=== PATIENT | female | born 1940 | race Caucasian/White ===

== ENCOUNTER 2018-10-03 21:55 | Inpatient (IN) ==
[2018-10-03] MEDS ORDERED: IOPAMIDOL 100 ML BOTTLE IV ONE (21:56)
[2018-10-03] MEDS ORDERED: 0.9 % SODIUM CHLORIDE 1,000 ML IV SCH (22:30)
--- NOTE | 2018-10-03 22:43 | Emergency Department Note ---
Neuro HPI - General Chief Complaint: Neuro Symptoms/Deficit Stated Complaint: Possible Stroke Time Seen by Provider: 10/03/18 22:20 Source: patient Mode of arrival: ambulatory Limitations: no limitations - History of Present Illness HPI Narrative: 77-year-old female approximately 4 hours prior to arrival at about 1800 went to walk outside onto her patio and her knee suddenly gave way. She fell onto the patio and she had trouble getting up because her right side was weak-both right arm and right leg. She did manage to gather enough strength to pull herself inside but she continued to have trouble because her legs keep giving out. She did injure her knees bilaterally. She was noted to have a right-sided facial droop. Falls were unwitnessed Denies any past medical history or risk factors for stroke - Related Data Home Medications: Home Medications Medication Instructions Recorded Confirmed Levothyroxine [Synthroid] 75 mcg PO DAILY 04/16/17 04/16/17 Previous Rx's Medication Instructions Recorded Ondansetron HCl [Zofran ODT] 4 mg SL Q4-6HP PRN #14 tablet 04/16/17 Allergies/Adverse Reactions: Allergies Allergy/AdvReac Type Severity Reaction Status Date / Time No Known Drug Allergies Allergy Verified 04/16/17 07:56 Review of Systems All systems ED: reviewed and negative except as stated. Past Medical History - Past Medical History Attestation: Yes: The following information was validated with the patient. Medical history: Reports: arthritis, thyroid disease Surgical history ED: Reports: hysterectomy - Social History smoking status: Former smoker Alcohol use: Reports: Rarely Drug use: Reports: none Physical Exam Normocephalic atraumatic. Conjunctive are clear sclerae nonicteric. No nasal discharge or congestion. Oropharynx pink and moist. Neck is supple without lymphadenopathy thyromegaly or carotid bruit. Heart is regular rate and rhythm no murmur appreciated. Lungs are clear to auscultation bilaterally without wheezes rales rhonchi or respiratory distress. Abdomen is soft nontender nondistended. No peritoneal signs guarding or rigidity. No pedal edema. +2 radial pulse. Alert oriented able to give me reasonable history although she does have some trouble with word finding is not clear if this is baseline or if this is new. She is overall cooperative and is able to move around with some assistance but she does note significant right arm weakness of the shoulder elbow and hand. [employer] is much decreased when compared to the left. Additionally right hip and knee are much decreased compared to the left in terms of strength. Sensation does appear to be intact bilaterally. Cranial nerves II through XII grossly intact I do not see a facial droop here. No dysarthria ataxia or tremor. Osteoarthritic changes to her hands. Bilateral knees with abrasions mild but no lacerations ecchymoses. Mild effusion on the right although she is complaining of more pain on the left. Knees seem stable on testing. Limitations: no limitations Course Vital Signs Temperature 98.4 F 10/03/18 21:55 Pulse Rate 94 H 10/03/18 21:55 Respiratory Rate 18 10/03/18 21:55 Blood Pressure 182/105 10/03/18 21:55 Pulse Oximetry (%) 95 10/03/18 21:55 Temperature 98.4 F 10/03/18 21:55 Pulse Rate 93 H 10/04/18 01:01 Respiratory Rate 21 10/04/18 01:01 Blood Pressure 187/91 10/04/18 01:01 Pulse Oximetry (%) 94 10/04/18 01:01 Neuro Symptoms/Deficit - Lab Data Lab results reviewed: Yes I reviewed the patient's lab results. Result diagrams: 10/03/18 22:22 10/03/18 22:22 Lab Results 10/03/18 10/03/18 10/03/18 Range/Units 22:22 22:22 22:22 WBC 7.3 (4.5-11.0) K/mcL RBC 5.06 (4.00-5.20) M/mcL Hgb 12.8 (12.0-15.0) g/dL Hct 38.9 (36.0-48.0) % POC Hct 39.0 (36.0-48.0) % MCV 76.8 L (80.0-100.0) fL MCH 25.2 L (26.0-34.0) pg MCHC 32.8 (31.0-36.0) g/dL RDW 13.5 (11.5-14.5) % Plt Count 226 (140-440) K/mcL MPV 8.9 (7.4-10.4) fL Gran % 82.0 H (38.0-78.0) % Lymph % (Auto) 10.6 L (15.5-49.0) % [place] % (Auto) 5.9 (1.0-12.0) % Eos % (Auto) 1.3 (0.0-7.0) % Baso % (Auto) 0.2 (0.0-2.0) % Gran # 6.0 (1.8-8.0) K/mcL Lymph # (Auto) 0.8 L (1.5-4.8) K/mcL [place] # (Auto) 0.4 (0.1-0.9) K/mcL Eos # (Auto) 0.1 (0.0-0.7) K/mcL Baso # (Auto) 0 (0.0-0.3) K/mcL POC PT 12.2 (11.9-14.5) sec POC INR 1.0 (0.9-1.2) APTT 29 (20-37) sec POC Sodium 141 (133-145) mmol/L Sodium 139 (133-145) mmol/L POC Potassium 3.9 (3.3-5.1) mmol/L Potassium 4.1 (3.3-5.1) mmol/L POC Chloride 107 (96-108) mmol/L Chloride 104 (96-108) mmol/L Carbon Dioxide 20 L (22-30) mmol/L POC Total CO2 22 (22-30) mmol/L Anion Gap 15.0 (8-16) POC BUN 19 (8-23) mg/dl BUN 18 (8-23) mg/dl Creatinine 0.7 (0.6-1.1) mg/dl POC Creatinine 0.7 (0.6-1.1) mg/dl GFR Calculation 82 Glucose 106 H (70-105) mg/dL POC Glucose 109 H (70-105) mg/dL Calcium 10.4 (8.6-10.4) mg/dl POC WB Ioniz Calcium 1.26 (1.16-1.32) mmol/L Total Bilirubin 0.4 (0.0-1.0) mg/dL AST 24 (0-37) U/l ALT 21 (0-40) U/l Alkaline Phosphatase 98 (39-117) U/L Troponin T (0-0.03) ng/ml Total Protein 7.3 (5.9-8.4) gm/dL Albumin 4.4 (3.2-5.2) gm/dL Globulin 2.9 (2.2-3.7) gm/dL Albumin/Globulin Ratio 1.5 (1.0-2.3) Urine Color Urine Appearance Urine pH (5.0-9.0) Ur Specific [place] (1.000-1.035) Urine Protein (NEG) mg/dL Urine Glucose (UA) (NEG) mg/dL Urine Ketones (NEG) mg/dL Urine Occult Blood (<0.03) mg/dL Urine Nitrate (NEG) Urine Bilirubin (NEG) mg/dL Urine Urobilinogen (NEG) mg/dL Ur Leukocyte Esterase (NEG) /uL Urine RBC (0-1) /hpf Urine WBC (0-4) /hpf Ur Squamous Epith Cells (0-4) /hpf Ur Transition Epith Cell (0-2) /hpf Urine Bacteria (0) /hpf Urine Mucus (0) /hpf Ur Culture Indicated? 10/03/18 10/03/18 Range/Units 22:22 23:18 WBC (4.5-11.0) K/mcL RBC (4.00-5.20) M/mcL Hgb (12.0-15.0) g/dL Hct (36.0-48.0) % POC Hct (36.0-48.0) % MCV (80.0-100.0) fL MCH (26.0-34.0) pg MCHC (31.0-36.0) g/dL RDW (11.5-14.5) % Plt Count (140-440) K/mcL MPV (7.4-10.4) fL Gran % (38.0-78.0) % Lymph % (Auto) (15.5-49.0) % [place] % (Auto) (1.0-12.0) % Eos % (Auto) (0.0-7.0) % Baso % (Auto) (0.0-2.0) % Gran # (1.8-8.0) K/mcL Lymph # (Auto) (1.5-4.8) K/mcL [place] # (Auto) (0.1-0.9) K/mcL Eos # (Auto) (0.0-0.7) K/mcL Baso # (Auto) (0.0-0.3) K/mcL POC PT (11.9-14.5) sec POC INR (0.9-1.2) APTT (20-37) sec POC Sodium (133-145) mmol/L Sodium (133-145) mmol/L POC Potassium (3.3-5.1) mmol/L Potassium (3.3-5.1) mmol/L POC Chloride (96-108) mmol/L Chloride (96-108) mmol/L Carbon Dioxide (22-30) mmol/L POC Total CO2 (22-30) mmol/L Anion Gap (8-16) POC BUN (8-23) mg/dl BUN (8-23) mg/dl Creatinine (0.6-1.1) mg/dl POC Creatinine (0.6-1.1) mg/dl GFR Calculation Glucose (70-105) mg/dL POC Glucose (70-105) mg/dL Calcium (8.6-10.4) mg/dl POC WB Ioniz Calcium (1.16-1.32) mmol/L Total Bilirubin (0.0-1.0) mg/dL AST (0-37) U/l ALT (0-40) U/l Alkaline Phosphatase (39-117) U/L Troponin T < 0.01 (0-0.03) ng/ml Total Protein (5.9-8.4) gm/dL Albumin (3.2-5.2) gm/dL Globulin (2.2-3.7) gm/dL Albumin/Globulin Ratio (1.0-2.3) Urine Color Yellow Urine Appearance Clear Urine pH 7.0 (5.0-9.0) Ur Specific [place] 1.015 (1.000-1.035) Urine Protein Neg (NEG) mg/dL Urine Glucose (UA) Negative (NEG) mg/dL Urine Ketones 5/tr A (NEG) mg/dL Urine Occult Blood Neg (<0.03) mg/dL Urine Nitrate Neg (NEG) Urine Bilirubin Neg (NEG) mg/dL Urine Urobilinogen Neg (NEG) mg/dL Ur Leukocyte Esterase 25 A (NEG) /uL Urine RBC 1 (0-1) /hpf Urine WBC 5 H (0-4) /hpf Ur Squamous Epith Cells 1 (0-4) /hpf Ur Transition Epith Cell < 1 (0-2) /hpf Urine Bacteria 0 (0) /hpf Urine Mucus Few (0) /hpf Ur Culture Indicated? Yes - Radiology Data Radiology results reviewed: Yes I reviewed the patient's radiology results. CT scan of the head without contrast shows no acute findings but old small vessel disease and chronic scalp findings Knee x-rays do not show acute abnormality either. CT angiogram of the head and neck shows no acute findings; no cause for stroke identified - EKG Data EKG attestation: Yes I reviewed and interpreted this EKG. EKG results narrative: EKG shows rate of 95 normal sinus rhythm without evidence of ischemia Disposition Pt seen by YARDER/PA only: No Clinical Impression: CVA (cerebral vascular accident) Qualifiers: CVA mechanism: unspecified Qualified Code(s): I63.9 - Cerebral infarction, unspecified Fall Qualifiers: Encounter type: initial encounter Qualified Code(s): W19.XXXA - Unspecified fall, initial encounter Knee contusion Qualifiers: Encounter type: initial encounter Laterality: unspecified laterality Qualified Code(s): S80.00XA - Contusion of unspecified knee, initial encounter Summary: Workup ordered for likely CVA with residual right-sided weakness of arm and leg. Now out of window for TPA CT scan does not show any sign of acute stroke. Tele-stroke was contacted then and I discussed the case with Dr. Rivas who recommended CT angiogram of the head and neck-if this was negative she felt the patient could be monitored here and worked up. If a embolism was identified patient could be sent up to [place] then CT angiogram did not show evidence of an acute embolism. So I discussed the case with Dr. Nesbitt, hospitalist, who agreed to accept the patient for further care and evaluation here Disposition: Xfer As Inpt ([facility]) Condition: Fair Referrals: Marjan Marrero MD [Primary Care Provider] -
[2018-10-03 23:33] LABS: ALT/SGPT 21 U/l (0-40); Albumin 4.4 gm/dL (3.2-5.2); Albumin/Globulin Ratio 1.5 (1.0-2.3); Alkaline Phosphatase 98 U/L (39-117); Blood Urea Nitrogen 18 mg/dl (8-23)
[2018-10-03 23:36] LABS: Basophils # (Auto) 0 K/mcL (0.0-0.3); Basophils % (Auto) 0.2 % (0.0-2.0); Eosinophils # (Auto) 0.1 K/mcL (0.0-0.7); Eosinophils % (Auto) 1.3 % (0.0-7.0); Lymphocytes # (Auto) 0.8 K/mcL (1.5-4.8); Lymphocytes % (Auto) 10.6 % (15.5-49.0); Mean Cell Volume 76.8 fL (80.0-100.0); Mean Corpuscular HGB Conc 32.8 g/dL (31.0-36.0); Mean Corpuscular Hemoglobin 25.2 pg (26.0-34.0); Monocytes # (Auto) 0.4 K/mcL (0.1-0.9); Monocytes % (Auto) 5.9 % (1.0-12.0); Platelet Count 226 K/mcL (140-440); RBC 5.06 M/mcL (4.00-5.20); Red Cell Distribution Width 13.5 % (11.5-14.5)
[2018-10-04 00:17] LABS: Appearance,Urine CLEAR; Bacteria,Urine 0 /hpf (0); Bilirubin,Urine NEG (NEG); Color,Urine YELLOW; Glucose,Urine (UA) NEGATIVE (NEG); Leukocyte Esterase,Urine 25 /uL (NEG); Mucus,Urine FEW /hpf (0); Protein,Urine NEG (NEG); Specific Gravity,Urine 1.015 (1.000-1.035); Urine Blood NEG mg/dL (<0.03); Urine RBC 1 /hpf (0-1); Urine Squamous Epithelial Cell 1 /hpf (0-4); Urine Transitional Epi Cells < 1 /hpf (0-2); Urine WBC 5 /hpf (0-4); Urobilinogen,Urine NEG (NEG)
[2018-10-04] MEDS ORDERED: ASPIRIN 81 MG TAB.CHEW CHEWED ONE (01:36)
[2018-10-04] MEDS: 0.9 % SODIUM CHLORIDE 1,000 ML IV SCH (03:48)
--- NOTE | 2018-10-04 05:54 | Cat Scan Report ---
CLINICAL INFORMATION: Code stroke COMPARISON: None. TECHNIQUE: Axial noncontrast-enhanced images through the brain. FINDINGS: No acute intracranial hemorrhage. No subdural or subarachnoid hemorrhage. No intra-axial hematoma. There is extensive white matter abnormality with low density in a predominantly periventricular distribution. There are low density abnormalities in the globus pallidus bilaterally. These are consistent with nonacute infarctions. Periventricular white matter abnormalities consistent with small vessel ischemic change. No acute attenuation abnormality or localized mass effect. No midline shift. Brainstem and cerebellum are negative. Basilar cisterns are normal. No hyperdense middle cerebral artery sign. No calvarial lesions. No fracture. No lytic lesion. There are 2 small calcifications in the right parietal extracranial soft tissues. There is also a small soft tissue nodule. Findings are most consistent with epidermal inclusion cysts. Examination was initially interpreted by [facility] IMPRESSION: 1. No acute intracranial hemorrhage. 2. White matter abnormality consistent with small vessel ischemic change. 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 No acute abnormality The exam was performed using radiation dose optimization techniques including, but not limited to, automated exposure control, adjustment of the mA and/or kV according to patient size and use of iterative reconstruction technique. Interpreted and Authenticated by: Celestino Roman 10/04/18
--- NOTE | 2018-10-04 05:55 | XRay Report ---
CLINICAL INFORMATION: Fall. Knee pain. TECHNIQUE: Bilateral AP and crosstable lateral views COMPARISON: None. FINDINGS: Knees are negative. No acute fracture. No plain film evidence for suprapatellar intra-articular effusion. No acute abnormality. IMPRESSION: Negative bilateral knees Interpreted and Authenticated by: Celestino Roman 10/04/18
--- NOTE | 2018-10-04 06:19 | Cat Scan Report ---
CLINICAL INFORMATION: Code stroke TECHNIQUE: Axial images through the chest and neck. 80 mL contrast material injected. Scans performed during arterial phase. Sagittal and coronal MIP and MPR reformatted images. COMPARISON: Noncontrast enhanced brain CT scan dated 10/03/2018 FINDINGS: Mild calcification in the aortic arch. No thoracic aortic aneurysm. No dissection. Origins of the left subclavian artery, left common carotid artery, innominate artery, right subclavian artery, right common carotid artery are negative. There is mild calcification in the distal left common carotid artery at the carotid bifurcation. There is no luminal compromise. No stenosis. No evidence for ulceration. Cervical internal carotid arteries are negative bilaterally. No stenosis. No ulceration. No luminal irregularity. No soft plaque. Vertebral arteries are negative. No stenosis or occlusion. There is no cervical soft tissue mass. No prevertebral soft tissue swelling. Lung apices are negative. No soft tissue mass. No focal infiltrate There is a linear density within the upper right breast. Etiology is not certain. Patient does not have any prior mammograms to review Examination was initially reviewed by [facility] IMPRESSION: 1. Minimal calcification in the distal left common carotid artery 2. Otherwise negative examination. No stenosis. No ulceration. Interpreted and Authenticated by: Celestino Roman 10/04/18
--- NOTE | 2018-10-04 06:27 | Cat Scan Report ---
CLINICAL INFORMATION: Code stroke TECHNIQUE: 80 mL intravenous contrast material injected. Scans performed during arterial phase. Routine axial images obtained. Sagittal, axial, coronal MIP reformatted images. COMPARISON: Noncontrast enhanced brain CT scan dated 10/03/2018 FINDINGS: Dense atherosclerotic calcification in the distal cavernous and supraclinoid segments of the internal carotid arteries bilaterally. There is 50% stenosis bilaterally. No complete occlusion. M1 segments of the middle cerebral arteries and A1 segments of the anterior cerebral arteries are negative. No stenosis or occlusion. No intraluminal thrombus. Intracranial vertebral arteries are negative. No stenosis. Basilar artery is negative. Posterior cerebral arteries appear negative. No intracranial aneurysm. No arteriovenous malformation. No detectable intracranial branch occlusion. There is a possible focal intracranial stenosis in an M2 right middle cerebral artery branch. This is identified on MIP coronal reformatted images, best seen on series 202, image 85/204. There is no complete occlusion. No other intracranial stenosis or branch occlusion. Dural sinuses are normally opacified. Examination was initially interpreted by [facility] IMPRESSION: 1. Dense atherosclerotic calcification in the distal cavernous and proximal supraclinoid segments of the internal carotid arteries bilaterally. Approximately 50% stenosis bilaterally. 2. Possible intracranial stenosis involving an M2 branch of the right middle cerebral artery. No intracranial branch occlusion. Interpreted and Authenticated by: Celestino Roman 10/04/18
[2018-10-04] MEDS ORDERED: ACETAMINOPHEN 325 MG TABLET PO PRN (07:46)
[2018-10-04] MEDS ORDERED: ONDANSETRON 4 MG/2 ML VIAL IV PRN (07:46)
--- NOTE | 2018-10-04 07:56 | Internal Med History&Physical ---
Medical - H&P: HPI Patient information: Note initiated : 10/04/18 at 7:54 am Service Date, if different from initiated Date: [] Patient: Kelly Gates a 77 y/o F admitted on 10/04/18 for Possible Stroke. Chief Complaint: [] History of present illness: Ms. Gates is a 77 year old F Who presented to the ED after a fall and right-sided weakness last night. Yesterday evening she went out to take her dog outside the bathroom when she stepping through the door she suddenly fell legs gave out and try to get up she knows her right side was significantly weak eventually notes her right arm was weak as well she called 9 1 was brought to the ER. She states she was able to communicate appropriately with the with EMS. She denies any facial droop or slurring or difficulty with speech. She did have some tingling and numbness in her right side as well. She still has the symptoms although they are somewhat improved. CTA head neck was done which did not reveal the stroke. Telemetry stroke was contacted by ER physician spoke with the stroke neurologist patient was out of the timeframe for TPA and was recommended to treat medically. No strokes in the past. Patient is not on aspirin. EKG in the ER with normal sinus rhythm. Only chronic findings on the CTA head neck showed carotid artery stenosis of about 50% in possibly some stenosis of the right middle cerebral artery. Review of Systems: Pertinent positives as above. Denies headache/fever/chills/nausea/vomiting/ chest or abdominal pain/cough/dyspnea/diarrhea. Remaining 10 point review of systems reviewed negative Medical - H&P: PMH Medical history: Medical history: Hypothyroidism Past surgical history: Ovarian cyst removal Family history: Mother had a mini stroke at age 90 Father is healthy Social history: Patient quit smoking 1985 drinks alcohol rarely lives by herself Medical - H&P: Meds Home Medications Medication Instructions Recorded Confirmed Type Levothyroxine [Synthroid] 75 mcg PO DAILY 04/16/17 04/16/17 History Ondansetron HCl [Zofran ODT] 4 mg SL Q4-6HP PRN #14 tablet 04/16/17 Rx Allergies Allergy/AdvReac Type Severity Reaction Status Date / Time No Known Drug Allergies Allergy Verified 04/16/17 07:56 Medical - H&P: Exam - Constitutional Vitals: Temp Pulse Resp BP Pulse Ox 98.1 F 90 18 174/92 96 10/04/18 04:05 10/04/18 01:36 10/04/18 04:05 10/04/18 04:05 10/04/18 04:05 Exam: General: Alert, Awake, No acute Distress Eyes/N/T: EOMI, PEERL, DMM Head/Neck: neck supple, normocephalic atraumatic CV: RRR, No murmurs, normal s1/s2 Pulm: Clear b/l, no wheezing/rhonchi/rales Abd: soft, nontender, +BS x4 Ext: no clubbing/cyanosis/edema Neuro: Alert, CN 2-12 grossly intact, facial symmetry, hemiparetic on the right side Arm>leg, pronator drift on the right, mildly decreased sensation on the right side. Speech clear, comprehension intact Skin: warm/dry Medical - H&P: Reslt - Labs CBC & Chem 7: 10/03/18 22:22 10/03/18 22:22 Labs: Short CBC 10/03/18 Range/Units 22:22 WBC 7.3 (4.5-11.0) K/mcL Hgb 12.8 (12.0-15.0) g/dL Hct 38.9 (36.0-48.0) % Plt Count 226 (140-440) K/mcL BMP 10/03/18 22:22 Sodium 139 Potassium 4.1 Chloride 104 Carbon Dioxide 20 L BUN 18 Creatinine 0.7 Glucose 106 H Calcium 10.4 Cardiac Enzymes 10/03/18 Range/Units 22:22 Troponin T < 0.01 (0-0.03) ng/ml Liver Function 10/03/18 Range/Units 22:22 Total Bilirubin 0.4 (0.0-1.0) mg/dL AST 24 (0-37) U/l ALT 21 (0-40) U/l Alkaline Phosphatase 98 (39-117) U/L Albumin 4.4 (3.2-5.2) gm/dL Urine 10/03/18 Range/Units 23:18 Urine Color Yellow Urine Appearance Clear Urine pH 7.0 (5.0-9.0) Ur Specific [place] 1.015 (1.000-1.035) Urine Protein Neg (NEG) mg/dL Urine Glucose (UA) Negative (NEG) mg/dL - Impressions EKG with normal sinus rhythm CT of the head neck shows about 50% stenosis of the carotid arteries bilaterally and potentially some stenosis of the M2 branch of the right middle cerebral artery. No acute stroke noted Medical - H&P: A/P - Narrative A/P Narrative: A: *Stroke-like symptoms with right hemiparesis and mild paresthesias: -CTA head/neck with approximately 50% carotid aa stenosis, possible stenosis of m2 branch of Right MCA -ABCD= *Microcytosis *Hypothyroidism * * P: -IV fluid hydration -Aspirin/plavix initially -Statin -Pending MRI and echo -Allow permissive hypertension first 24 hours -lipid panel -pt/ot/st - -ppx:lovenox Medical - H&P: Qual - Stroke Onset of Symptoms Date: 10/04/18 Onset of Symptoms Time: 18:30 Symptom Onset Unknown: No - VTE Deep Vein Thrombosis/Pulmonary Embolism Present on Admission: No
[2018-10-04] MEDS ORDERED: ATORVASTATIN 20 MG TABLET PO ONE (08:00)
[2018-10-04 09:24] LABS: Ferritin 90.2 ng/ml (30-400)
[2018-10-04 09:25] LABS: HDL Cholesterol 57 mg/dl (>40); Iron 74 mcg/dl (37-145); LDL Cholesterol,Calculated 175 mg/dl (SEE CHART); Transferrin % Saturation 24 % (15-50); Unsaturated Iron Binding 228 mcg/dL (112-346)
[2018-10-04] MEDS: CLOPIDOGREL 75 MG TABLET PO SCH (10:00)
[2018-10-04] MEDS: ENOXAPARIN 40 MG/0.4 ML SYRINGE SQ SCH (10:00)
[2018-10-04] MEDS: ASPIRIN 81 MG TAB.CHEW PO SCH (10:00)
[2018-10-04] MEDS: cefTRIAXone 1 GM VIAL IV SCH (10:00)
[2018-10-04] MEDS: 0.9 % SODIUM CHLORIDE 10 ML SYRINGE IV SCH ×2 (15:56→22:28)
[2018-10-04] MEDS ORDERED: hydrOXYzine 25 MG TABLET PO ONE (20:21)
[2018-10-04] MEDS: ATORVASTATIN 20 MG TABLET PO SCH (20:49)
[2018-10-05] MEDS: 0.9 % SODIUM CHLORIDE 1,000 ML IV SCH (00:20)
[2018-10-05] MEDS: 0.9 % SODIUM CHLORIDE 10 ML SYRINGE IV SCH ×3 (05:47→22:17)
[2018-10-05 05:55] LABS: ALT/SGPT 17 U/l (0-40); Albumin 3.8 gm/dL (3.2-5.2); Albumin/Globulin Ratio 1.4 (1.0-2.3); Alkaline Phosphatase 92 U/L (39-117); Bilirubin,Direct < 0.2 mg/dL (0.0-0.3); Blood Urea Nitrogen 9 mg/dl (8-23); Gamma Glutamyl Transpeptidase 28 U/L (5-36); Uric Acid 4.3 mg/dL (2.5-8.0)
--- NOTE | 2018-10-05 07:34 | Internal Med Progress Note ---
Medical - PN: Subj Patient information: Note initiated : 10/05/18 at 7:27 am Service Date, if different from initiated Date: [] Patient: Kelly Gates 77 y/o F admitted on 10/04/18 for Possible Stroke. Chief Complaint: [] Interval history: Ms. Gates is a 77 year old F Who presented to the ED after a fall and right-sided weakness last night. Yesterday evening she went out to take her dog outside the bathroom when she stepping through the door she suddenly fell legs gave out and try to get up she knows her right side was significantly weak eventually notes her right arm was weak as well she called 9 1 was brought to the ER. She states she was able to communicate appropriately with the with EMS. She denies any facial droop or slurring or difficulty with speech. She did have some tingling and numbness in her right side as well. She still has the symptoms although they are somewhat improved. CTA head neck was done which did not reveal the stroke. Telemetry stroke was contacted by ER physician spoke with the stroke neurologist patient was out of the timeframe for TPA and was recommended to treat medically. No strokes in the past. Patient is not on aspirin. EKG in the ER with normal sinus rhythm. Only chronic findings on the CTA head neck showed carotid artery stenosis of about 50% in possibly some stenosis of the right middle cerebral artery. 10/05 No overnight events. Doing well, weakness is improving. Review of Systems: denies headache/fever/chills/nausea/vomiting/chest or abdominal pain/cough/ dyspnea/diarrhea. Otherwise see above. - Constitutional Vitals: Vital Signs Temp Pulse Resp BP Pulse Ox 98.1 F 58 L 14 147/81 96 10/05/18 03:32 10/05/18 03:32 10/05/18 03:32 10/05/18 03:32 10/05/18 03:32 Period Temp Pulse Resp BP Sys/Bean Pulse Ox Last 24 Hr 97.4 F-98.8 F 58-71 14-20 147-159/81-96 96-99 Intake and Output 10/04/18 10/05/18 10/05/18 21:59 05:59 13:59 Intake Total 1480 / 1480 300 / 300 Output Total 1251 / 1251 401 / 401 Balance 229 / 229 -101 / -101 Weight 80.422 kg Intake & Output: Intake & Output 10/04/18 10/05/18 10/05/18 21:59 05:59 13:59 Intake Total 1480 / 1480 300 / 300 Output Total 1251 / 1251 401 / 401 Balance 229 / 229 -101 / -101 Weight 80.422 kg Intake: IV 1000 / 1000 Sodium Chloride 0.9% 1,000 ml @ 1000 / 1000 75 drops/hr IV .Q24H [facility] Rx#: [id number] Oral 480 / 480 300 / 300 Output: Void Amount 1250 / 1250 400 / 400 # of times incontinent of urine Other: Meal Dinner Percent of Meal Consumed 25% Feeding Ability Assist with Tray Set Up Urine Appearance Clear Urine Color Pale # Voids 1 1 Exam: General: Alert, Awake, No acute Distress Eyes/N/T: EOMI, Head/Neck: neck supple CV: RRR, No murmurs, normal s1/s2 Pulm: Clear b/l, no wheezing/rhonchi/rales Abd: soft, nontender, +BS x4 Ext: no clubbing/cyanosis/edema Neuro: Alert, CN 2-12 grossly intact, facial symmetry, hemiparetic on the right side Arm>leg but much improved. Speech clear, comprehension intact Skin: warm/dry Medical - PN: Obj Da - Labs CBC & Chem 7: 10/03/18 22:22 10/05/18 03:33 Labs: Abnormal Lab Results 10/05/18 10/04/18 10/03/18 03:33 08:07 23:18 MCV MCH Gran % Lymph % (Auto) Lymph # (Auto) Carbon Dioxide 20 L Glucose POC Glucose Cholesterol 253 H LDL Cholesterol, Calc 175 H Non-HDL Cholesterol 196 H Urine Ketones 5/tr A Ur Leukocyte Esterase 25 A Urine WBC 5 H 10/03/18 10/03/18 22:22 22:22 MCV 76.8 L MCH 25.2 L Gran % 82.0 H Lymph % (Auto) 10.6 L Lymph # (Auto) 0.8 L Carbon Dioxide 20 L Glucose 106 H POC Glucose 109 H Cholesterol LDL Cholesterol, Calc Non-HDL Cholesterol Urine Ketones Ur Leukocyte Esterase Urine WBC Meds: Medications Acetaminophen (Tylenol) 650 mg PO Q6HP PRN PRN Reason: PAIN/FEVER > 101 Aspirin (Aspirin) 81 mg PO DAILY [facility] Last Admin: 10/04/18 10:00 Dose: 81 mg Atorvastatin Calcium (Lipitor) 60 mg PO HS [facility] Last Admin: 10/04/18 20:49 Dose: 60 mg Ceftriaxone Sodium (Rocephin) 1 gm IV Q24H [facility] Last Admin: 10/04/18 10:00 Dose: 1 gm Clopidogrel Bisulfate (Plavix) 75 mg PO DAILY [facility] Last Admin: 10/04/18 10:00 Dose: 75 mg Enoxaparin Sodium (Lovenox) 40 mg SQ DAILY [facility] Last Admin: 10/04/18 10:00 Dose: 40 mg Sodium Chloride (Sodium Chloride 0.9%) 1,000 mls @ 75 drops/hr IV .Q24H [facility] Stop: 10/06/18 01:38 Last Admin: 10/05/18 00:20 Dose: 75 drops/hr Levothyroxine Sodium (Synthroid) 75 mcg PO QAMAC [facility] Ondansetron HCl (Zofran) 4 mg IV Q4HP PRN PRN Reason: Nausea And Vomiting Sodium Chloride (Saline Flush) 10 ml IV Q8 [facility] Last Admin: 10/05/18 05:47 Dose: Not Given Medical - PN: A/P - Time Spent With Patient Total time spent is greater than 50% in coordination of care (as documented) at patient's floor/unit and/or counseling patient: - Narrative A/P Narrative: A: *Stroke-like symptoms with right hemiparesis and mild paresthesias: symptoms improving -CTA head/neck with approximately 50% carotid aa stenosis, possible stenosis of m2 branch of Right MCA -ABCD=6 *Oropharyngeal dysphagia, mild: *Microcytosis *Hypothyroidism *?UTI: *HLD: P: -IV fluid hydration -Aspirin/plavix initially, given ?intracranial stenosis and carotid stenosis -Statin -Pending MRI and echo -Allow permissive hypertension first 24 hours -rocephin pending UC -pt/ot/st -Diet per ST -f/u with Dr. Reynaldo colbertpt -ppx:lovenox Medical - PN: Qual - Stroke Onset of Symptoms Date: 10/04/18 Onset of Symptoms Time: 18:30 Symptom Onset Unknown: No - VTE Deep Vein Thrombosis/Pulmonary Embolism Present on Admission: No
[2018-10-05] MEDS: ASPIRIN 81 MG TAB.CHEW PO SCH (08:02)
[2018-10-05] MEDS: LEVOTHYROXINE 75 MCG TABLET PO SCH (08:02)
[2018-10-05] MEDS: CLOPIDOGREL 75 MG TABLET PO SCH (08:03)
[2018-10-05] MEDS: ENOXAPARIN 40 MG/0.4 ML SYRINGE SQ SCH (08:26)
[2018-10-05] MEDS: cefTRIAXone 1 GM VIAL IV SCH (08:26)
[2018-10-05] MEDS ORDERED: LORazepam 2 MG/ML VIAL IV ONE (09:29)
--- NOTE | 2018-10-05 10:23 | Discharge Summary ---
Medical - DS: Prov Patient information: Note initiated : 10/05/18 at 10:21 am Service Date, if different from initiated Date: [] Patient: Kelly Gates 77 y/o F admitted on 10/04/18 for Possible Stroke. Chief Complaint: [] Date of admission: 10/04/18 01:36 Discharge date: 10/07/18 Primary care physician: Marjan Marrero Consults: 10/04/18 Consult to Physician [CONS] Stat Comment: Consulting Provider: Nagi Nesbitt Reason For Exam: Physician to Consult Medical - DS: Meds - Discharge Medications Prescriptions: amLODIPine [Norvasc] 2.5 mg PO DAILY #30 tab Aspirin 81 mg PO DAILY #30 tab.chew Atorvastatin [Lipitor] 40 mg PO HS #60 tab Clopidogrel Bisulfate [Plavix] 75 mg PO DAILY #14 tab Active and Home Medications: Home Medications Levothyroxine [Synthroid] 75 mcg PO DAILY 04/16/17 [History Confirmed 10/04/18 Last Taken Unknown] Home Medications Levothyroxine [Synthroid] 75 mcg PO DAILY 04/16/17 [History Confirmed 10/04/18 Last Taken Unknown] Aspirin 81 mg PO DAILY #30 tab.chew 10/05/18 [Rx Last Taken Unknown] Atorvastatin [Lipitor] 40 mg PO HS #60 tab 10/05/18 [Rx Last Taken Unknown] Clopidogrel Bisulfate [Plavix] 75 mg PO BID #30 tab 10/05/18 [Rx Last Taken Unknown] Medical - DS: Hosp Hospital course: Mr. Gates is a 77 year old F Ms. Gates is a 77 year old F Who presented to the ED after a fall and right-sided weakness last night. Yesterday evening she went out to take her dog outside the bathroom when she stepping through the door she suddenly fell legs gave out and try to get up she knows her right side was significantly weak eventually notes her right arm was weak as well she called 9 1 was brought to the ER. She states she was able to communicate appropriately with the with EMS. She denies any facial droop or slurring or difficulty with speech. She did have some tingling and numbness in her right side as well. She still has the symptoms although they are somewhat improved. CTA head neck was done which did not reveal the stroke. Telemetry stroke was contacted by ER physician spoke with the stroke neurologist patient was out of the timeframe for TPA and was recommended to treat medically. No strokes in the past. Patient is not on aspirin. EKG in the ER with normal sinus rhythm. Only chronic findings on the CTA head neck showed carotid artery stenosis of about 50% in possibly some stenosis of the right middle cerebral artery. 10/05 No overnight events. Doing well, weakness is improving. 10/06 Slept well feeling much better feels like weakness is continuing to improve. No new complaints. 10/07 Doing well stable for discharge Discharge diagnosis: CVA, oropharyngeal dysphasia - Time Spent with Patient Total time spent providing and/or coordinating discharge services: Greater than 30 minutes Medical - DS: Exam - Constitutional Vitals: Vital Signs Temp Pulse Pulse Resp BP BP Pulse Ox 10/05/18 08:00 60 99 10/05/18 07:57 97.4 F 64 126/108 99 10/05/18 03:32 98.1 F 58 L 14 147/81 96 10/05/18 00:25 97.4 F 68 14 156/84 96 10/04/18 19:02 98.2 F 71 16 159/85 97 10/04/18 16:00 98.1 F 20 150/96 97 10/04/18 15:49 150/96 10/04/18 11:45 98.1 F 20 157/82 99 10/04/18 11:34 62 157/82 98 Intake and Output 10/04/18 10/05/18 10/05/18 21:59 05:59 13:59 Intake Total 1480 / 1480 300 / 300 Output Total 1251 / 1251 401 / 401 Balance 229 / 229 -101 / -101 Intake: IV 1000 / 1000 Sodium Chloride 0.9% 1,000 ml @ 1000 / 1000 75 drops/hr IV .Q24H [facility] Rx#: [id number] Oral 480 / 480 300 / 300 Output: Void Amount 1250 / 1250 400 / 400 # of times incontinent of urine Other: Meal Dinner Percent of Meal Consumed 25% Feeding Ability Assist with Tray Set Up Urine Appearance Clear Clear Urine Color Pale Light Mag Urine Odor Strong # Voids 1 1 Weight 80.422 kg Medical - DS: Data Labs on day of discharge: Labs from last 24 hours 10/05/18 03:33 Sodium 140 Potassium 3.7 Chloride 107 Carbon Dioxide 20 L Anion Gap 13.0 BUN 9 Creatinine 0.7 GFR Calculation 82 Glucose 82 Uric Acid 4.3 Calcium 9.4 Phosphorus 3.2 Magnesium 2.1 Total Bilirubin 0.6 Direct Bilirubin < 0.2 GGT 28 AST 23 ALT 17 Alkaline Phosphatase 92 Lactate Dehydrogenase 206 Total Protein 6.6 Albumin 3.8 Globulin 2.8 Albumin/Globulin Ratio 1.4 Triglycerides 139 Preliminary micro results at discharge 10/03/18 23:18 Urine Culture - Preliminary Urine - Clean Void [facility] - DS: A/P - Patient/Caregiver Discharge Instructions Activity: as per physical therapy Diet: Cardiac Additional Instructions: Monitor daily blood pressure morning and afternoon and bring log to primary care provider Prescriptions: amLODIPine [Norvasc] 2.5 mg PO DAILY #30 tab Aspirin 81 mg PO DAILY #30 tab.chew Atorvastatin [Lipitor] 40 mg PO HS #60 tab Clopidogrel Bisulfate [Plavix] 75 mg PO DAILY #14 tab - Follow up Plan Follow up with: Marjan Marrero MD [Primary Care Provider] - Celestino Jacobs MD [Physician] - (cva, carotid stenosis and possible intracranial stenosis) Disposition: Xfer SNF Prognosis: Fair Rehab Potential: Fair I certify that the patient requires SNF services: Yes Overall status at discharge: patient is progressing back to baseline Medical - DS: Qual - VTE Deep Vein Thrombosis/Pulmonary Embolism Present on Admission: No
[2018-10-05] MEDS ORDERED: chlordiazePOXIDE 5 MG CAPSULE PO ONE ×2 (21:07→22:35)
[2018-10-05] MEDS: ATORVASTATIN 20 MG TABLET PO SCH (22:16)
[2018-10-06] MEDS: 0.9 % SODIUM CHLORIDE 10 ML SYRINGE IV SCH ×3 (05:41→21:24)
--- NOTE | 2018-10-06 08:20 | Cat Scan Report ---
CLINICAL INFORMATION: Cerebral infarction COMPARISON: Previous CT scan dated 10/03/2018 TECHNIQUE: Axial noncontrast-enhanced images through the brain. FINDINGS: No acute intracranial hemorrhage. There is periventricular and subcortical white matter abnormality in both cerebral hemispheres. She remains most consistent with small vessel ischemic change. There are subtle lacunar infarctions in both basal ganglia. These findings are unchanged. No new focal intra-axial attenuation abnormalities. No localized mass effect. No midline shift. Brain volume is within normal limits for age. Brainstem and cerebellum are negative. No subdural hematoma. No subarachnoid hemorrhage. No calvarial lesions. No fracture. No lytic lesion. Temporal bones are negative IMPRESSION: No acute or focal abnormality. No interval change since 10/03/2018 The exam was performed using radiation dose optimization techniques including, but not limited to, automated exposure control, adjustment of the mA and/or kV according to patient size and use of iterative reconstruction technique. Interpreted and Authenticated by: Celestino Roman 10/06/18
[2018-10-06] MEDS: ASPIRIN 81 MG TAB.CHEW PO SCH (08:27)
[2018-10-06] MEDS: CLOPIDOGREL 75 MG TABLET PO SCH (08:27)
[2018-10-06] MEDS: amLODIPine 5 MG TABLET PO SCH (08:27)
[2018-10-06] MEDS: LEVOTHYROXINE 75 MCG TABLET PO SCH (08:27)
[2018-10-06] MEDS: ENOXAPARIN 40 MG/0.4 ML SYRINGE SQ SCH (08:27)
[2018-10-06] MEDS ORDERED: cefTRIAXone 1 GM VIAL IM ONE (09:58)
[2018-10-06] MEDS ORDERED: CALCIUM CARBONATE 500 MG TAB.CHEW CHEWED PRN (10:00)
[2018-10-06] MEDS: cefTRIAXone 1 GM VIAL IV SCH (10:21)
--- NOTE | 2018-10-06 10:58 | Internal Med Progress Note ---
Medical - PN: Subj Patient information: Note initiated : 10/06/18 at 10:54 am Service Date, if different from initiated Date: [] Patient: Kelly Gates 77 y/o F admitted on 10/04/18 for Possible Stroke. Chief Complaint: [] Interval history: Ms. Gates is a 77 year old F Who presented to the ED after a fall and right-sided weakness last night. Yesterday evening she went out to take her dog outside the bathroom when she stepping through the door she suddenly fell legs gave out and try to get up she knows her right side was significantly weak eventually notes her right arm was weak as well she called 9 1 was brought to the ER. She states she was able to communicate appropriately with the with EMS. She denies any facial droop or slurring or difficulty with speech. She did have some tingling and numbness in her right side as well. She still has the symptoms although they are somewhat improved. CTA head neck was done which did not reveal the stroke. Telemetry stroke was contacted by ER physician spoke with the stroke neurologist patient was out of the timeframe for TPA and was recommended to treat medically. No strokes in the past. Patient is not on aspirin. EKG in the ER with normal sinus rhythm. Only chronic findings on the CTA head neck showed carotid artery stenosis of about 50% in possibly some stenosis of the right middle cerebral artery. 10/05 No overnight events. Doing well, weakness is improving. 10/06 Slept well feeling much better feels like weakness is continuing to improve. No new complaints. Review of Systems: denies headache/fever/chills/nausea/vomiting/chest or abdominal pain/cough/ dyspnea/diarrhea. Otherwise see above. - Constitutional Vitals: Vital Signs Temp Pulse Resp BP Pulse Ox 97.2 F 72 16 149/70 96 10/06/18 07:30 10/06/18 10:31 10/06/18 08:20 10/06/18 07:30 10/06/18 08:20 Period Temp Pulse Resp BP Sys/Bean Pulse Ox Last 24 Hr 97.2 F-99.3 F 58-76 16-18 149-175/70-93 95-98 Intake and Output 10/05/18 10/06/18 10/06/18 21:59 05:59 13:59 Intake Total 200 / 200 Output Total 1050 / 1050 650 / 650 Balance -1050 / -1050 -450 / -450 Weight 81.42 kg Intake & Output: Intake & Output 10/05/18 10/06/18 10/06/18 21:59 05:59 13:59 Intake Total 200 / 200 Output Total 1050 / 1050 650 / 650 Balance -1050 / -1050 -450 / -450 Weight 81.42 kg Intake: Oral 200 / 200 Output: Void Amount 1050 / 1050 650 / 650 Other: Urine Appearance Clear Urine Color Dark Yellow Urine Odor Strong # Voids 1 Exam: General: Alert, Awake, No acute Distress Eyes/N/T: EOMI, Head/Neck: neck supple CV: RRR, No murmurs, normal s1/s2 Pulm: Clear b/l, no wheezing/rhonchi/rales Abd: soft, nontender, +BS x4 Ext: no clubbing/cyanosis/edema Neuro: Alert, CN 2-12 grossly intact, facial symmetry, mildly hemiparetic on the right side Arm>leg but significantly improved. Speech clear, comprehension intact Skin: warm/dry Medical - PN: Obj Da - Labs CBC & Chem 7: 10/03/18 22:22 10/05/18 03:33 Labs: Abnormal Lab Results 10/05/18 10/04/18 10/03/18 03:33 08:07 23:18 MCV MCH Gran % Lymph % (Auto) Lymph # (Auto) Carbon Dioxide 20 L Glucose POC Glucose Cholesterol 253 H LDL Cholesterol, Calc 175 H Non-HDL Cholesterol 196 H Urine Ketones 5/tr A Ur Leukocyte Esterase 25 A Urine WBC 5 H 10/03/18 10/03/18 22:22 22:22 MCV 76.8 L MCH 25.2 L Gran % 82.0 H Lymph % (Auto) 10.6 L Lymph # (Auto) 0.8 L Carbon Dioxide 20 L Glucose 106 H POC Glucose 109 H Cholesterol LDL Cholesterol, Calc Non-HDL Cholesterol Urine Ketones Ur Leukocyte Esterase Urine WBC Meds: Medications Acetaminophen (Tylenol) 650 mg PO Q6HP PRN PRN Reason: PAIN/FEVER > 101 Amlodipine Besylate (Norvasc) 2.5 mg PO DAILY [facility] Last Admin: 10/06/18 08:27 Dose: 2.5 mg Aspirin (Aspirin) 81 mg PO DAILY [facility] Last Admin: 10/06/18 08:27 Dose: 81 mg Atorvastatin Calcium (Lipitor) 60 mg PO HS [facility] Last Admin: 10/05/18 22:16 Dose: 60 mg Calcium Carbonate/Glycine (Tums) 1,000 mg CHEWED Q4HP PRN PRN Reason: Dyspepsia Clopidogrel Bisulfate (Plavix) 75 mg PO DAILY [facility] Last Admin: 10/06/18 08:27 Dose: 75 mg Enoxaparin Sodium (Lovenox) 40 mg SQ DAILY [facility] Last Admin: 10/06/18 08:27 Dose: 40 mg Levothyroxine Sodium (Synthroid) 75 mcg PO QAMAC [facility] Last Admin: 10/06/18 08:27 Dose: 75 mcg Ondansetron HCl (Zofran) 4 mg IV Q4HP PRN PRN Reason: Nausea And Vomiting Sodium Chloride (Saline Flush) 10 ml IV Q8 [facility] Last Admin: 10/06/18 05:41 Dose: Not Given Medical - PN: A/P - Time Spent With Patient Total time spent is greater than 50% in coordination of care (as documented) at patient's floor/unit and/or counseling patient: - Narrative A/P Narrative: A: *CVA with right hemiparesis and mild paresthesias: symptoms significantly improved -CTA head/neck with approximately 50% carotid aa stenosis, possible stenosis of m2 branch of Right MCA -ABCD=6 *Oropharyngeal dysphagia, mild: *Microcytosis *Hypothyroidism *?UTI: *HLD: P: -Aspirin/plavix initially, given ?intracranial stenosis and carotid stenosis -Statin -rocephin pending UC -pt/ot/st -Diet per ST -f/u with Dr. Jacobs outpt -ppx:lovenox d/c planning for AM Medical - PN: Qual - Stroke Onset of Symptoms Date: 10/04/18 Onset of Symptoms Time: 18:30 Symptom Onset Unknown: No - VTE Deep Vein Thrombosis/Pulmonary Embolism Present on Admission: No
[2018-10-06] MEDS ORDERED: chlordiazePOXIDE 5 MG CAPSULE PO PRN (21:01)
[2018-10-06] MEDS: ATORVASTATIN 20 MG TABLET PO SCH (22:02)
[2018-10-07] MEDS: 0.9 % SODIUM CHLORIDE 10 ML SYRINGE IV SCH (04:42)
[2018-10-07] MEDS: LEVOTHYROXINE 75 MCG TABLET PO SCH (07:34)
[2018-10-07] MEDS: CLOPIDOGREL 75 MG TABLET PO SCH (09:30)
[2018-10-07] MEDS: ASPIRIN 81 MG TAB.CHEW PO SCH (09:31)
[2018-10-07] MEDS: ENOXAPARIN 40 MG/0.4 ML SYRINGE SQ SCH (09:31)
[2018-10-07] MEDS: amLODIPine 5 MG TABLET PO SCH (09:31)
== END 2018-10-07 12:08 | DRG 65 ==
LOC: ED 21:55 → ICU 10-04 01:36 → MEDSUR 10-05 09:01
PROVIDERS: ADMIT Internal Medicine; ATTEND Internal Medicine
CPT/HCPCS: 73560; 80047; 85014; 97162; 97167; 99223; 99231; G8996; G8997; G8998; J0696; J1650; J2060; J7030; Q9967